=== PATIENT | female | born 1970 | race Caucasian/White ===

== ENCOUNTER 2020-01-26 06:17 | Day surgery (SDC) | payer BC ==
[~2020-01-26] VITALS: Ht 160 cm; Wt 67.8 kg
[~2020-01-26 06:17] MED LIST: ASPI325 PO; ATOR80 PO; AZIT250 PO; Acetaminophen-1 EAC1 PO; BORIC ACID VAG; Colace250 MG PO; EZET10 PO; Esgic Tablet1 EACH PO; GABAPENTIN300 MG/6 M PO; HYDACE5 PO; MELO7.5 PO; TESTOSTERONE TOP
[2020-01-26] MEDS ORDERED: GABA300 PO (07:03)
[2020-01-26] MEDS ORDERED: LINZESS290 MCG PO (07:04)
--- NOTE | 2020-01-26 08:32 | NUR ---
01/26/20 0832 Fawn Sarah DC'D IN OR AT END OF CASE.
--- NOTE | 2020-01-26 09:50 | NUR ---
01/26/20 4180 [facility] called to get recommendations for discharge medications. Prescribed motrin, tramadol, and vicodin (see paper chart). Per pharmacist, patient should start with motrin for pain control, adding in tramadol if necessary for breakthrough pain. If motrin/tramadol not effective enough for pain control, patient should stop taking tramadol and instead take motrin/vicodin for pain control, being careful to not take tramadol and vicodin together. Patient educated on this plan.
== END 2020-01-26 10:38 | disposition home or self-care (01) ==
LOC: ORSCSDS 06:17
PROVIDERS: Obstetrics & Gynecology
PROC: 0UB14ZZ Excision of Left Ovary, Percutaneous Endoscopic Approach (ICD-10-PCS; principal; 2020-01-26 07:30)
PROC: 0UB64ZZ Excision of Left Fallopian Tube, Percutaneous Endoscopic Approach (ICD-10-PCS; principal; 2020-01-26 07:30)
DX: N94.89 Other specified conditions associated with female genital organs and menstrual cycle (principal); R10.2 Pelvic and perineal pain; E78.5 Hyperlipidemia, unspecified; Z87.891 Personal history of nicotine dependence; Z79.899 Other long term (current) drug therapy
CPT/HCPCS: 88305; J0171; J1100; J1885; J2250; J2405; J2704; J2710; J2765; J3010; J7120

== ENCOUNTER 2021-05-17 10:20 | Day surgery (SDC) | payer BC ==
[~2021-05-17] VITALS: Ht 160 cm; Wt 71.1 kg
[~2021-05-17 10:20] MED LIST changes: +CELE200 PO; +ESTRADIOL42.5 GM; +GABA300 PO; +LINZESS290 MCG PO
--- NOTE | 2021-05-17 11:00 | NUR ---
05/17/[address] HAD CONSENT SIGNED AT BEDSIDE.
--- NOTE | 2021-05-17 12:38 | NUR ---
05/17/21 1238 Emily Mendez 0.15ML OF EPI 1MG/ML ADDED TO 30ML OF BUPIVICAINE 0.5% TO CREATE A LOCAL OF BUPIVICAINE 0.5% WITH EPI 1:200,000.
== END 2021-05-17 14:00 | disposition home or self-care (01) ==
LOC: ORSCSDS 10:20
PROVIDERS: Podiatrist Foot & Ankle Surgery
PROC: 0JNR0ZZ Release Left Foot Subcutaneous Tissue and Fascia, Open Approach (ICD-10-PCS; principal; 2021-05-17 11:45)
DX: M72.2 Plantar fascial fibromatosis (principal); Z87.891 Personal history of nicotine dependence; Z79.899 Other long term (current) drug therapy
CPT/HCPCS: J0171; J1100; J1885; J2250; J2405; J2704; J3010; J3370